=== PATIENT | male | born 1990 | race Caucasian/White ===

== ENCOUNTER 2019-07-18 21:50 | Emergency (ER) | payer OTHER ==
[~2019-07-18] VITALS: Ht 167.6 cm; Wt 54.4 kg
[2019-07-18 22:05] VITALS: BP_SYST 124
--- NOTE | 2019-07-18 22:05 | NUR ---
Pt ambulatory to bed 5 for evaluation
--- NOTE | 2019-07-18 22:10 | NUR ---
Pt brought in by family member. Pt awake, alert, oriented x4. Pt states that he had removal of x3 wisdom teeth on friday and had been taking [place] 5/325, Ibuprofen 600mg, Clindamycin post procedure. Pt states that he began to have sudden onset of RUQ pain 10/ this afternoon and nausea. Pt denies chest pain, shortness of breath, any other medical complaint at this time. Pt Resting in ED bed, vss
--- NOTE | 2019-07-18 22:10 | NUR ---
ER at bedside examining patient.
[2019-07-18] MEDS ORDERED: PANTOPRAZOLE SODIUM 40 MG/VIAL (PROTONIX) IVP ONE (22:30)
[2019-07-18] MEDS ORDERED: NACL 0.9% 1,000 ML IV ONE (22:30)
[2019-07-18] MEDS ORDERED: DIPHENHYDRAMINE INJ 50 MG/ML VIAL IVP ONE (22:30)
[2019-07-18] MEDS ORDERED: MORPHINE 2 MG/ML INJ. SYRINGE IVP ONE (22:30)
[2019-07-18] MEDS ORDERED: PROCHLORPERAZINE EDISYLATE 10 MG/2 ML VIAL IVP ONE (22:30)
[2019-07-18 22:50] LABS: BASOPHILS % (AUTO) 0.2 % (0.0-2.0); EOSINOPHILS # (AUTO) 0.1 K/uL (0.0-0.4); EOSINOPHILS % (AUTO) 0.5 % (0.0-4.0); HEMATOCRIT 39.6 % (36-54); HEMOGLOBIN 13.5 g/dL (14.0-18.0); LYMPHOCYTES # (AUTO) 0.8 K/uL (1.0-5.5); LYMPHOCYTES % (AUTO) 5.5 % (20.5-51.5); MEAN CORPUSCULAR HEMOGLOBIN 31 pg (27-31); MEAN CORPUSCULAR HGB CONC 34 % (32-36); MEAN CORPUSCULAR VOLUME 92 fL (79.0-98.0); MONOCYTES # (AUTO) 1.1 K/uL (0.0-1.0); MONOCYTES % (AUTO) 8.1 % (1.7-9.3); NEUTROPHILS % (AUTO) 85.7 % (40.0-70.0); PLATELET COUNT (AUTO) 207 K/uL (130-430); RED BLOOD CELL COUNT(AUTO) 4.33 MIL/uL (4.2-6.2); RED CELL DISTRIBUTION WIDTH 12.6 % (9.0-15.0); WHITE BLOOD COUNT (AUTO) 13.9 K/uL (4.8-10.8)
[2019-07-18 23:06] LABS: CALCIUM 8.2 mg/dL (8.4-11.0); CREATININE 0.93 mg/dL (0.55-1.30); POTASSIUM 3.9 mmol/L (3.5-5.1)
[2019-07-18 23:09] LABS: ALBUMIN 4.1 g/dL (3.4-4.8); TOTAL BILIRUBIN 1.1 mg/dL (0.0-1.0)
[2019-07-18] MEDS ORDERED: CLIN150C15 PO (23:43)
[2019-07-18] MEDS ORDERED: HYDR-4272 PO (23:43)
[2019-07-18] MEDS ORDERED: IBUP-1971 PO (23:43)
[2019-07-18] MEDS ORDERED: ONDA4TAB5 PO (23:44)
--- NOTE | 2019-07-18 23:54 | NUR ---
Pt resting in ed bed comfortably. No distress. Pt states that pain has been "Mostly relieved"
[2019-07-19 00:27] VITALS: BP_SYST 122
--- NOTE | 2019-07-19 00:27 | NUR ---
Patient given written and verbal discharge instructions and verbalizes understanding. ER MD discussed with patient the results and treatment provided. Patient in stable condition. ID arm band removed. IV catheter removed intact and dressing applied, no active bleeding. Rx of Protonix, amoxicillin given. Patient educated on pain management and to follow up with PMD. Pain Scale 0/10. Opportunity for questions provided and answered. Medication side effect fact sheet provided.
== END 2019-07-19 00:27 | disposition home or self-care (01) ==
LOC: SED 21:50
DX: K75.89 Other specified inflammatory liver diseases (principal); R10.13 Epigastric pain; R11.10 Vomiting, unspecified
CPT/HCPCS: 36415; 80053; 83690; 85025; 96361; 96374; 96375; 99284; C9113; J0780; J1200; J2270; J7030